=== PATIENT | male | born 1950 | race Caucasian/White ===

== ENCOUNTER → 2017-03-09 | Outpatient (CLI) | payer BC, MEDICARE ==
--- NOTE | 2017-03-09 15:20 | RAD ---
Chest, 2 views, 03/09/2017: History: Shortness of breath No previous chest radiographs are available at this time for comparison purposes. There has been a previous median sternotomy. The heart size and pulmonary vascularity are normal. There is a nodular opacity projected over left upper chest superimposed over the anterior end of the left first rib. This may be a pulmonary nodule or prominent costochondral ossification. The lungs are otherwise clear. There is no evidence of pleural fluid. Moderate hypertrophic spurring is present in the spine with bridging osteophytes at several levels. IMPRESSION: Possible left upper lobe pulmonary nodule. In the absence of previous imaging to establish stability, CT scanning should be considered for further evaluation.
== END | disposition home or self-care (01) ==
LOC: RAD 11:29
PROVIDERS: ATTEND Internal Medicine Pulmonary Disease
DX: R91.8 Other nonspecific abnormal finding of lung field (principal); R06.02 Shortness of breath
CPT/HCPCS: 71020